=== PATIENT | female | born 1990 | race American Indian/Alaskan Native ===

== ENCOUNTER 2019-05-03 07:00 | Inpatient (IN) | payer OTHER ==
--- NOTE | 2019-05-03 08:35 | HP ---
Past Medical History - Primary Care Physician PCP:: Derek Hollins - Admission Chief Complaint: 40.6 weeks for induction History of Present Illness: 41 weeks, GDM , for cervidil induction, , hx of GDM, diet controlled, cx closed 25 vx -3 mi, fhr cat 1, no contraction History Source: Patient Limitations to Obtaining History: No Limitations - Past Medical History ...: 1 ...Para: 0 ...EDC by Sono: 04/26/19 - Past Surgical History Hx Myomectomy: No Hx Transabdominal Cerclage: No - Smoking History Have you smoked in the past 12 months: No - Alcohol/Substance Use Hx Alcohol Use: No History of Substance Use: reports: None - Social History Usual Living Arrangement: Yes: With Spouse History of Recent Travel: No Home Medications - Allergies Allergies/Adverse Reactions: Allergies Allergy/AdvReac Type Severity Reaction Status Date / Time No Known Allergies Allergy Verified 05/03/19 07:58 - Home Medications Home Medications: Ambulatory Orders Vits96/Iron Fum/Folic [ Tablet] 1 each PO DAILY 05/03/19 Review of Systems - Review of Systems Constitutional: reports: No Symptoms HENT: reports: No Symptoms Neck: reports: No Symptoms Cardiovascular: reports: No Symptoms Respiratory: reports: No Symptoms Gastrointestinal: reports: No Symptoms Genitourinary: reports: No Symptoms Breasts: reports: No Symptoms Reported Musculoskeletal: reports: No Symptoms Integumentary: reports: No Symptoms Neurological: reports: No Symptoms Endocrine: reports: No Symptoms Hematology/Lymphatic: reports: No Symptoms Psychiatric: reports: No Symptoms Physical Exam - Maternity Constitutional: Yes: Well Nourished, No Distress, Calm Eyes: Yes: WNL, Conjunctiva Clear, EOM Intact HENT: Yes: WNL, Atraumatic, Normocephalic Neck: Yes: WNL, Supple, Trachea Midline Cardiovascular: Yes: WNL, Regular Rate and Rhythm Breast(s): Yes: WNL - Abdominal Exam/OB Number of Fetuses: Single Presentation: Vertex Contractions: Yes Intensity: Unaware Monitor Mode: External Heart Rate Location: [facility] Category: I Accelerations: Uniform Decelerations: None - Vaginal Exam/OB Vaginal Bleediing: No Dilatation (cm): closed Effacement (%): 25 Amniotic Membrane Status: Intact Presentation: Vertex/Position Station: -3 - Physical Exam Musculoskeletal: Yes: Muscle Weakness Extremities: Yes: WNL Edema: Yes Edema: LLE: Trace, RLE: Trace Deep Tendon Reflex Grade: Normal +2 Psychiatric: Yes: WNL Hemorrhage Risk Assessment - Risk Factors Medium Risk Factors: Yes: None Risk Score: 1 Risk Level: Medium Risk Problem List - Problems (1) , post-term Code(s): O48.0 - POST-TERM Qualifiers: Post-term type: 40-42 weeks gestation Qualified Code(s): O48.0 - Post-term (2) Gestational diabetes mellitus (GDM) Code(s): O24.419 - GESTATIONAL DIABETES MELLITUS IN , UNSP CONTROL Qualifiers: Gestational diabetes mellitus control: diet-controlled Trimester: third trimester Qualified Code(s): O24.410 - Gestational diabetes mellitus in , diet controlled Assessment/Plan admit for cervidil induction GBS positve ,will start antibiotic when in labor
[2019-05-03] MEDS ORDERED: PROMETHAZINE HCL 25 MG/1 ML VIAL IVPB ONE (08:36)
[2019-05-03] MEDS ORDERED: BUTORPHANOL TARTRATE 1 MG/ML VIAL IVPUSH PRN (08:36)
[2019-05-03] MEDS ORDERED: DINOPROSTONE 10 MG VAGINAL SUPPOSITORY VG ONE (08:37)
--- NOTE | 2019-05-03 08:39 | PN ---
Progress Note (short form) - Note Progress Note: cx closed vx -3 mi, fhr cat 1, no contraction , cervidil risks discussed cervidil inserted at 830 am Problem List - Problems (1) , post-term Code(s): O48.0 - POST-TERM Qualifiers: Post-term type: 40-42 weeks gestation Qualified Code(s): O48.0 - Post-term (2) Gestational diabetes mellitus (GDM) Code(s): O24.419 - GESTATIONAL DIABETES MELLITUS IN , UNSP CONTROL Qualifiers: Gestational diabetes mellitus control: diet-controlled Trimester: third trimester Qualified Code(s): O24.410 - Gestational diabetes mellitus in , diet controlled
[2019-05-03 08:52] VITALS: BMI 30.4
[2019-05-03 08:55] LABS: BASO % 0.3 % (0-2.0); EOS % 0.5 % (0-4.5); HEMATOCRIT 33.6 % (32.4-45.2); HEMOGLOBIN 11.3 GM/dL (10.7-15.3); LYMPH % 20.9 % (8-40); MCH 27.1 pg (25.7-33.7); MCHC 33.6 g/dl (32.0-36.0); MEAN CELL VOLUME 80.6 fl (80-96); MEAN PLT VOLUME 8.7 fl (7.5-11.1); NEUT % 71.3 % (42.8-82.8); PLATELET COUNT 170 K/MM3 (134-434); RBC 4.17 M/mm3 (3.60-5.2); RDW 15.1 % (11.6-15.6); WHITE BLOOD COUNT 10.5 K/mm3 (4.0-10.0)
[2019-05-03 09:09] LABS: INR 0.92 (0.83-1.09); PROTHROMBIN TIME (PATIENT) 10.8 SEC (9.7-13.0)
[2019-05-03 09:12] LABS: ACTIVATED PTT 26.7 SECONDS (25.2-36.5)
[2019-05-03 09:22] LABS: BLOOD UREA NITROGEN 6.9 mg/dL (7-18); CALCIUM 8.9 mg/dL (8.5-10.1); CREATININE 0.5 mg/dL (0.55-1.3); POTASSIUM 4.1 mmol/L (3.5-5.1)
[2019-05-03] MEDS ORDERED: ELECTROLYTE-148 SOLN 500 ML IV ONE (13:00)
[2019-05-03] MEDS ORDERED: ELECTROLYTE-148 SOLN 500 ML IV SCH (13:30)
[2019-05-03] MEDS ORDERED: AMPICILLIN SODIUM 2 GM VIAL ONE (14:19)
[2019-05-03] MEDS ORDERED: AMPICILLIN - 2 GM in SODIUM CHLORIDE 100 ML IVPB ONE (14:30)
[2019-05-03] MEDS ORDERED: PROMETHAZINE HCL 25 MG/1 ML VIAL ONE (14:34)
[2019-05-03] MEDS ORDERED: BUTORPHANOL TARTRATE 1 MG/ML VIAL ONE ×2 (14:34)
[2019-05-03] MEDS ORDERED: AMPICILLIN SODIUM 1 GM VIAL ONE (15:46)
[2019-05-03] MEDS ORDERED: ELECTROLYTE-148 SOLN 1,000 ML IV SCH ×2 (18:15→21:45)
[2019-05-03] MEDS: AMPICILLIN - 1 GM in SODIUM CHLORIDE 100 ML IVPB SCH (18:26)
[2019-05-03] MEDS ORDERED: CITRIC ACID/SODIUM CITRATE 30 ML UNIT-DOSE CUP PO ONE (21:32)
--- NOTE | 2019-05-03 21:32 | PN ---
Progress Note (short form) - Note Progress Note: cx closed vx -3 mi, declined pitocin , risks explained BS 98 Problem List - Problems (1) , post-term Code(s): O48.0 - POST-TERM Qualifiers: Post-term type: 40-42 weeks gestation Qualified Code(s): O48.0 - Post-term (2) Gestational diabetes mellitus (GDM) Code(s): O24.419 - GESTATIONAL DIABETES MELLITUS IN , UNSP CONTROL Qualifiers: Gestational diabetes mellitus control: diet-controlled Trimester: third trimester Qualified Code(s): O24.410 - Gestational diabetes mellitus in , diet controlled
[2019-05-03] MEDS ORDERED: ONDANSETRON 4 MG/2 ML VIAL IVPUSH PRN (22:14)
[2019-05-03] MEDS ORDERED: OXYTOCIN 20 UNITS in 0.9% NS 20 UNIT/1,000 ML INFUS.BAG IV ONE (22:21)
[2019-05-03] MEDS ORDERED: morphine SULFATE/PF 0.5 MG/ML (2cc Syringe - QUVA) ONE (22:24)
[2019-05-03] MEDS ORDERED: ePHEDrine SULFATE 50 MG/1 ML AMPULE ONE (22:25)
[2019-05-03] MEDS ORDERED: ceFAZolin SODIUM 1 GM VIAL ONE (22:38)
[2019-05-03] MEDS ORDERED: WITCH HAZEL 50% (TUCKS) 40 PAD/JAR PAD TP PRN (23:38)
[2019-05-03] MEDS ORDERED: diphenhydrAMINE HCL 25 MG CAPSULE (FP) PO PRN (23:38)
[2019-05-03] MEDS ORDERED: BENZOCAINE 20% 57 GM BOTTLE TP PRN (23:38)
[2019-05-03] MEDS ORDERED: METHYLERGONOVINE MALEATE 0.2 MG/1 ML AMP IM PRN (23:38)
[2019-05-03] MEDS ORDERED: oxyCODONE HCL 5 MG TABLET PO PRN ×2 (23:38)
[2019-05-03] MEDS ORDERED: BENZOCAINE 28 GM HEMORRHOIDAL OINTMENT PR PRN (23:38)
--- NOTE | 2019-05-03 23:44 | OP ---
Operative Note - Note: Operative Date: 05/03/19 Pre-Operative Diagnosis: p0st date , cervidil induction, failure to dilate Operation: primary LST c/s Findings: live baby girl 9 , OP. cord around neck 1 Surgeon: Derek Hollins Transport Engineer: Felix Merino Anesthesiologist/MAILROOM MESSENGER: Waylon Tony Anesthesia: Spinal Specimens Removed: placenta Estimated Blood Loss (mls): 500 Drains & Tubes with Location: frost Operative Report Dictated: Yes
[2019-05-03] MEDS ORDERED: DEXTROSE 5%-LACTATED RINGERS 1,000 ML IV SCH (23:45)
[2019-05-04] MEDS: OXYTOCIN 20 UNITS in 0.9% NS 20 UNIT/1,000 ML INFUS.BAG IV SCH ×2 (01:03→12:00)
[2019-05-04] MEDS ORDERED: OXYTOCIN 20 UNITS in 0.9% NS 20 UNIT/1,000 ML INFUS.BAG IV ONE (01:09)
[2019-05-04] MEDS: IBUPROFEN 800 MG/8 ML IJ IVPB PRN ×2 (01:33→20:48)
[2019-05-04] MEDS ORDERED: CEFAZOLIN 1 GM/D5W 1 GM/50 ML BAG IVPB SCH (02:00)
[2019-05-04] MEDS: AMPICILLIN - 1 GM in SODIUM CHLORIDE 100 ML IVPB SCH ×2 (02:27→07:50)
[2019-05-04] MEDS: CEFAZOLIN 1 GM/D5W 1 GM/50 ML BAG IVPB SCH ×2 (06:15→13:15)
[2019-05-04 07:04] LABS: BASO % 0.4 % (0-2.0); EOS % 0.1 % (0-4.5); HEMOGLOBIN 9.7 GM/dL (10.7-15.3); LYMPH % 14.7 % (8-40); MCH 26.3 pg (25.7-33.7); MCHC 32.2 g/dl (32.0-36.0); MEAN CELL VOLUME 81.7 fl (80-96); MEAN PLT VOLUME 9.3 fl (7.5-11.1); MONO % 9.6 % (3.8-10.2); NEUT % 75.2 % (42.8-82.8); PLATELET COUNT 152 K/MM3 (134-434); RBC 3.67 M/mm3 (3.60-5.2); RDW 15.3 % (11.6-15.6); WHITE BLOOD COUNT 15.2 K/mm3 (4.0-10.0)
--- NOTE | 2019-05-04 07:12 | PN ---
Progress Note (short form) - Note Progress Note: pod1 s/p c/s , doing well, breast feeding CBC, BMP 05/03/19 08:40 Last Vital Signs Temp Pulse Resp BP Pulse Ox 98.3 F 88 18 111/66 100 05/04/19 06:00 05/04/19 06:00 05/04/19 07:00 05/04/19 06:00 05/04/19 00:30 abdomen soft, no distension, no cva incision dry, clean no calf tenderness no excess vaginal bleeding pod 1 doing well, plan ambulate, cbc pain management advance diet Problem List - Problems (1) , post-term Code(s): O48.0 - POST-TERM Qualifiers: Post-term type: 40-42 weeks gestation Qualified Code(s): O48.0 - Post-term (2) Gestational diabetes mellitus (GDM) Code(s): O24.419 - GESTATIONAL DIABETES MELLITUS IN , UNSP CONTROL Qualifiers: Gestational diabetes mellitus control: diet-controlled Trimester: third trimester Qualified Code(s): O24.410 - Gestational diabetes mellitus in , diet controlled
--- NOTE | 2019-05-04 08:21 | OP ---
DATE OF OPERATION: 05/03/2019 PREOPERATIVE DIAGNOSIS: , post date, Cervidil induction, failure to dilate. POSTOPERATIVE DIAGNOSIS: , post date, Cervidil induction, failure to dilate. PROCEDURE: Primary low-segment, transverse section. SURGEON: Pastora De La Vega MD APICULTURIST: ADRIAN Burrell ANESTHESIA: Spinal. ANESTHESIOLOGIST: Waylon Tony, REF-DO ESTIMATED BLOOD LOSS: 500 mL DESCRIPTION OF PROCEDURE: Patient was taken to the operating room. Under adequate spinal anesthesia, abdomen and perineum were prepped and draped. Pfannenstiel abdominal skin incision was made. Abdominal wall was cut layer by layer. Anterior peritoneum was exposed and incised. Upon entering the abdominal cavity, lower uterine segment was identified and uterovesical fold of peritoneum established. Bladder was pushed down. Then, with the lower blade of the David retractor in the pelvis, a low transverse uterine incision was made. Incision extended laterally with bandage scissors. Amniotic sac was entered, clear fluid. Head delivered from right occiput transverse position. Cord around the neck x1, reduced, and live baby girl was delivered without any difficulty. Placenta was delivered manually. Uterine cavity was cleaned out of remaining tissue. Uterine incision was closed in 2 layers, first layer with 0 Biosyn continuous suture, the second layer with 0 Biosyn imbricating the first layer. Bladder flap was closed with 0 Biosyn continuous suture. Both tubes and ovaries were checked, were normal. No active bleeding was seen. All the lap pads, sponge, and instrument counts were correct. Then, peritoneum was closed with 0 Biosyn continuous suture. Muscles were brought together with interrupted suture of 0 Biosyn. Fascia was closed with 0 Biosyn continuous suture, subcutaneous fat interrupted suture of 0 Biosyn, and the skin was closed with 4-0 Biosyn subcuticular continuous suture. PASTORA DE LA VEGA M.D. [id number]
--- NOTE | 2019-05-04 09:05 | PN ---
Progress Note, Physician Chief Complaint: POD s/p c/s - Current Medication List Current Medications: Active Medications Benzocaine (Americaine 20% [place] -) 1 spray TP PRN PRN PRN Reason: Pain - Topical Benzocaine (Americaine Ointment -) 1 applic NM PRN PRN PRN Reason: Pain - Topical Bisacodyl (Dulcolax Suppository -) 10 mg RC PRN PRN PRN Reason: CONSTIPATION Diphenhydramine HCl (Benadryl Injection -) 25 mg IVPUSH Q4H PRN PRN Reason: Pruritis Diphenhydramine HCl (Benadryl -) 25 mg PO Q8H PRN PRN Reason: FOR ITCHING Enoxaparin Sodium (Lovenox -) 40 mg SQ DAILY [facility] Parenteral Electrolytes (Plasma-Lyte 148 -) 1,000 mls @ 125 mls/hr IV ASDIR JASON Last Admin: 05/03/19 18:27 Dose: 125 mls/hr Parenteral Electrolytes (Plasma-Lyte 148 -) 1,000 mls @ 125 mls/hr IV ASDIR JASON Dextrose/Lactated Ringer's (D5-Lr -) 1,000 mls @ 125 mls/hr IV ASDIR JASON Cefazolin Sodium (Ancef 1 Gm Premixed Ivpb -) 1 gm in 50 mls @ 100 mls/hr IVPB Q8H [facility] Stop: 05/04/19 14:29 Last Admin: 05/04/19 06:15 Dose: 100 mls/hr Ibuprofen (Motrin -) 600 mg PO Q4H PRN PRN Reason: PAIN LEVEL 1 - 3 Ibuprofen (Caldolor Injection -) 800 mg IVPB Q6H PRN PRN Reason: PAIN > 5 if PO not effective. Last Admin: 05/04/19 01:33 Dose: 800 mg Methylergonovine Maleate (Methergine Injection -) 0.2 mg IM Q4H PRN PRN Reason: EXCESSIVE BLEEDING Last Admin: 05/04/19 00:50 Dose: 0.2 mg Ondansetron HCl (Zofran Injection) 4 mg IVPUSH Q4H PRN PRN Reason: NAUSEA Oxycodone HCl (Roxicodone -) 5 mg PO Q4H PRN PRN Reason: PAIN LEVEL 4 - 6 Oxycodone HCl (Roxicodone -) 10 mg PO Q4H PRN PRN Reason: PAIN LEVEL 7 - 10 Senna/Docusate Sodium (Pericolace -) 2 tablet PO HS PRN PRN Reason: CONSTIPATION Simethicone (Mylicon -) 80 mg PO Q4H PRN PRN Reason: GAS Witch Caroline/Glycerin (Tucks Pads -) 1 pad TP PRN PRN PRN Reason: Pain - Topical - Objective Vital Signs: Vital Signs Temperature 98.3 F 05/04/19 06:00 Pulse Rate 88 05/04/19 06:00 Respiratory Rate 18 05/04/19 07:00 Blood Pressure 111/66 05/04/19 06:00 O2 Sat by Pulse Oximetry (%) 100 05/04/19 00:30 Labs: CBC, BMP 05/04/19 06:29 05/03/19 08:40 INR, PTT INR 0.92 (0.83-1.09) 05/03/19 08:40 Assessment/Plan s/p spinal for C/S. Pt has incisional pain that is well-controlled. Hasn't ambulated yet, but has no back pain, no MATTHEWS, no other issues/complications with anesthesia
[2019-05-04] MEDS: ENOXAPARIN NA (PORCINE) 40 MG/0.4 ML DISP.SYRIN SQ SCH (11:08)
[2019-05-04] MEDS: IBUPROFEN 600 MG TABLET (FP) PO PRN (15:20)
[2019-05-04] MEDS: SIMETHICONE 80 MG TAB.CHEW (FP) PO PRN (15:21)
[2019-05-04] MEDS: ACETAMINOPHEN 325 MG TABLET (FP) PO PRN (15:21)
[2019-05-04] MEDS: SENNOSIDES/DOCUSATE COMBO (SENNA PLUS) TABLET (UD) PO PRN (21:36)
[2019-05-04] MEDS ORDERED: BISACODYL 10 MG SUPP.RECT RC PRN (23:38)
--- NOTE | 2019-05-05 05:55 | PN ---
Post Progress Note - Subjective Subjective: Patient without acute complaints. Reports tolerating oral intake without nausea or vomiting. Ambulating without dizziness. Denies fevers or chills. Pain well controlled with oral pain medication. without difficulty. Passing flatus. Post Day: 2 Type of Delivery: Primary C/S Vital Signs: Vital Signs Temperature 98.3 F 05/04/19 20:39 Pulse Rate 76 05/04/19 20:39 Respiratory Rate 20 05/04/19 23:38 Blood Pressure 124/67 05/04/19 20:39 O2 Sat by Pulse Oximetry (%) 100 05/04/19 00:30 Breast Exam: Yes: Soft Uterus: Yes: Fundus Firm, Fundus below umbilicus Incision: Yes: Dressing dry and intact Abdomen/GI: Yes: Abdomen soft, Abdominal Distention (soft), Tender (mild incisional), Passing flatus, Tolerating PO Lochia: Yes: Rubra Lochia, amount: Moderate Extremities: Yes: Calves non-tender, Edema (trace) Activity: Ambulating - Labs Labs: CBC WBC 15.2 K/mm3 (4.0-10.0) H 05/04/19 06:29 RBC 3.67 M/mm3 (3.60-5.2) 05/04/19 06:29 Hgb 9.7 GM/dL (10.7-15.3) L 05/04/19 06:29 Hct 30.0 % (32.4-45.2) L 05/04/19 06:29 MCV 81.7 fl (80-96) 05/04/19 06:29 MCH 26.3 pg (25.7-33.7) 05/04/19 06:29 MCHC 32.2 g/dl (32.0-36.0) 05/04/19 06:29 RDW 15.3 % (11.6-15.6) 05/04/19 06:29 Plt Count 152 K/MM3 (134-434) 05/04/19 06:29 MPV 9.3 fl (7.5-11.1) 05/04/19 06:29 Absolute Neuts (auto) 11.5 K/mm3 (1.5-8.0) H 05/04/19 06:29 Neutrophils % 75.2 % (42.8-82.8) 05/04/19 06:29 Lymphocytes % 14.7 % (8-40) D 05/04/19 06:29 Monocytes % 9.6 % (3.8-10.2) 05/04/19 06:29 Eosinophils % 0.1 % (0-4.5) 05/04/19 06:29 Basophils % 0.4 % (0-2.0) 05/04/19 06:29 Nucleated RBC % 0 % (0-0) 05/04/19 06:29 Assessment/Plan 29 yo POD # 2 s/p primary CD, afebrile, vital signs stable, mild asymptomatic anemia, doing well 1. Continue routine postoperative care. 2. Encourage ambulation and incentive spirometer use 3. Continue oral pain medication 4. Anticipate discharge home postoperative day #3 or #4
[2019-05-05] MEDS: ACETAMINOPHEN 325 MG TABLET (FP) PO PRN ×2 (08:49→17:46)
[2019-05-05] MEDS: SIMETHICONE 80 MG TAB.CHEW (FP) PO PRN (08:50)
[2019-05-05] MEDS: IBUPROFEN 600 MG TABLET (FP) PO PRN ×2 (08:50→17:45)
[2019-05-05] MEDS: ENOXAPARIN NA (PORCINE) 40 MG/0.4 ML DISP.SYRIN SQ SCH (09:25)
[2019-05-06] MEDS: ACETAMINOPHEN 325 MG TABLET (FP) PO PRN ×3 (05:54→21:06)
[2019-05-06] MEDS: IBUPROFEN 600 MG TABLET (FP) PO PRN ×3 (05:54→21:05)
[2019-05-06 07:51] LABS: BASO % 0.2 % (0-2.0); EOS % 1.1 % (0-4.5); HEMATOCRIT 24.4 % (32.4-45.2); LYMPH % 14.7 % (8-40); MCH 26.6 pg (25.7-33.7); MEAN CELL VOLUME 80.5 fl (80-96); MEAN PLT VOLUME 8.7 fl (7.5-11.1); MONO % 7.8 % (3.8-10.2); NEUT % 76.2 % (42.8-82.8); PLATELET COUNT 167 K/MM3 (134-434); RBC 3.02 M/mm3 (3.60-5.2); RDW 15.1 % (11.6-15.6); WHITE BLOOD COUNT 13.4 K/mm3 (4.0-10.0)
[2019-05-06] MEDS: ENOXAPARIN NA (PORCINE) 40 MG/0.4 ML DISP.SYRIN SQ SCH (09:06)
--- NOTE | 2019-05-06 12:02 | PN ---
Post Progress Note - Subjective Subjective: Patient without acute complaints. Reports tolerating oral intake without nausea or vomiting. Ambulating without dizziness. Denies fevers or chills. Pain well controlled with oral pain medication. without difficulty. Passing flatus. No BM yet Post Day: 3 Type of Delivery: Primary C/S Vital Signs: Vital Signs Temperature 97.3 F L 05/06/19 10:00 Pulse Rate 89 05/06/19 10:00 Respiratory Rate 20 05/06/19 10:00 Blood Pressure 114/69 05/06/19 10:00 O2 Sat by Pulse Oximetry (%) 100 05/04/19 00:30 Breast Exam: Yes: Soft Uterus: Yes: Fundus Firm, Fundus below umbilicus, Non-tender Incision: Yes: Sutures intact Abdomen/GI: Yes: Abdomen soft, Passing flatus, Tolerating PO Lochia: Yes: Rubra Lochia, amount: Small Extremities: Yes: Calves non-tender, Edema Perineum: Yes: Intact Activity: Ambulating - Labs Labs: CBC WBC 13.4 K/mm3 (4.0-10.0) H 05/06/19 07:00 RBC 3.02 M/mm3 (3.60-5.2) L 05/06/19 07:00 Hgb 8.0 GM/dL (10.7-15.3) L 05/06/19 07:00 Hct 24.4 % (32.4-45.2) L D 05/06/19 07:00 MCV 80.5 fl (80-96) 05/06/19 07:00 MCH 26.6 pg (25.7-33.7) 05/06/19 07:00 MCHC 33.0 g/dl (32.0-36.0) 05/06/19 07:00 RDW 15.1 % (11.6-15.6) 05/06/19 07:00 Plt Count 167 K/MM3 (134-434) 05/06/19 07:00 MPV 8.7 fl (7.5-11.1) 05/06/19 07:00 Absolute Neuts (auto) 10.2 K/mm3 (1.5-8.0) H 05/06/19 07:00 Neutrophils % 76.2 % (42.8-82.8) 05/06/19 07:00 Lymphocytes % 14.7 % (8-40) 05/06/19 07:00 Monocytes % 7.8 % (3.8-10.2) 05/06/19 07:00 Eosinophils % 1.1 % (0-4.5) D 05/06/19 07:00 Basophils % 0.2 % (0-2.0) 05/06/19 07:00 Nucleated RBC % 0 % (0-0) 05/06/19 07:00 Assessment/Plan 29yo s/p primary LT C/S, doing well stable, afebrile. The pt is asymptomatic for s/sxs of anemia. care instructions reviewed. Continue routine postop care. Ambulation encouraged.
[2019-05-06] MEDS: SENNOSIDES/DOCUSATE COMBO (SENNA PLUS) TABLET (UD) PO PRN (21:05)
[2019-05-06] MEDS: SIMETHICONE 80 MG TAB.CHEW (FP) PO PRN (21:05)
[2019-05-07] MEDS: ACETAMINOPHEN 325 MG TABLET (FP) PO PRN ×2 (05:48→10:13)
[2019-05-07] MEDS: SIMETHICONE 80 MG TAB.CHEW (FP) PO PRN ×2 (05:48→10:12)
[2019-05-07] MEDS: IBUPROFEN 600 MG TABLET (FP) PO PRN ×2 (05:49→10:13)
[2019-05-07] MEDS: ENOXAPARIN NA (PORCINE) 40 MG/0.4 ML DISP.SYRIN SQ SCH (09:27)
[2019-05-07 12:25] VITALS: BP 128/69; PULSE 81; TEMP 98.3
--- NOTE | 2019-05-08 11:25 | DS ---
Physical Exam-OUTREACH ASSOCIATE Vital Signs: Vital Signs Temperature 98.3 F 05/07/19 10:00 Pulse Rate 81 05/07/19 10:00 Respiratory Rate 18 05/07/19 10:00 Blood Pressure 128/69 05/07/19 10:00 O2 Sat by Pulse Oximetry (%) 100 05/04/19 00:30 ....Post : Yes: Uterus firm, Uterus non-tender, Slight lochia rubra Edema: No Wound/Incision: Yes: Clean/Dry, Well Approximated, Sutures Intact Labs: CBC, BMP 05/06/19 07:00 05/03/19 08:40 Delivery - Delivery Section: Primary, Low Flap Transverse (no complication) Type of Anesthesia: Spinal Episiotomy/Laceration: None EBL (cc): 500 Delivery, Single - Stages of Labor Date 1st Stage Initiatied: 05/03/19 Time 1st Stage Initiated: 12:30 Date of Delivery: 05/03/19 Time of Delivery: 22:53 Time Placenta Delivered: 22:54 Placenta: Yes: Expressed - Condition of Scrap Iron Loader/Medical Collections Present: Yes Name: Marcus Montejo Infant Gender: Female Weight: 6 lb 12 oz Position: OP Total Hours ROM (Hrs/Mins): 2min - 1 Minute Total Score: 9 5 Minutes Total Score: 9 - Feeding Plan Initial Plan: Exclusive throughout hospitalization Discharge Summary Reason For Visit: INDUCTION OF LABOR Procedures: Principal: primary LST c/s Condition: Stable - Instructions Diet, Activity, Other Instructions: Patient instructed to call office for one week follow-up appointment. Disposition: HOME - Home Medications Comprehensive Discharge Medication List: Ambulatory Orders Vits96/Iron Fum/Folic [ Tablet] 1 each PO DAILY 05/03/19
--- NOTE | 2019-05-10 16:44 | PATH ---
Surgical Pathology Report Patient Name: VANDANA RG Med. Rec. #: [id number] /Age/Gender: 1990 (Age: 29) / F Account: [id number] Location: [facility] OBS/BRAKE HOLDER Taken: 05/03/2019 Received: 05/04/2019 Reported: 05/10/2019 Physicians: Derek Hollins M.D. Specimen(s) Received PLACENTA Clinical History failed induction, gest DM, large gestational age. Primary Final Diagnosis PLACENTA, : MATURE THIRD TRIMESTER PLACENTA (646 G) SHOWING ACUTE CHORIOAMNIONITIS AND TRIVESSEL UMBILICAL CORD. Electronically Signed Asiya Feliciano M.D. Gross Description The specimen is received fresh labeled placenta and is a 647 gram, 19.5 x 16 x 3.5 cm. placenta with attached membranes and umbilical cord. The attached membranes appear mucoid. The eccentrically attached umbilical cord measures 14.5 cm. in length and averages 0.8 cm. in diameter. No true knots or strictures are identified. Cut surface of the umbilical cord reveals 3 vessels. The surface is lee-blue with minimal fibrin deposition and appropriate caliber vessels. The maternal surface is red-brown with focal defects. Sectioning reveals red-brown, spongy parenchyma. No lesions are identified. Senior Care Assistant sections are submitted in three cassettes as follows: 1- membrane rolls and umbilical cord; 2-3- full thickness sections of placenta. AE/05/08/2019 ebram/05/08/2019
== END 2019-05-07 13:25 | disposition home or self-care (01) | DRG 788 ==
LOC: JLDR 07:00 → J3W 05-04 01:10
PROVIDERS: ADMIT Obstetrics & Gynecology; ATTEND Obstetrics & Gynecology
PROC: 10D00Z1 Extraction of Products of Conception, Low, Open Approach (ICD-10-PCS; principal; 2019-05-03)
PROC: 3E0P7VZ Introduction of Hormone into Female Reproductive, Via Natural or Artificial Opening (ICD-10-PCS; 2019-05-03)
DX: O48.0 Post-term pregnancy (principal); O24.420 Gestational diabetes mellitus in childbirth, diet controlled; O62.0 Primary inadequate contractions; O69.81X0 Labor and delivery complicated by cord around neck, without compression, not applicable or unspecified; Z3A.40 40 weeks gestation of pregnancy; Z37.0 Single live birth
CPT/HCPCS: 36415; 36600; 80048; 82803; 82962; 85025; 85610; 85730; 86593; 86850; 86900; 86901; 88307-TC